=== PATIENT | female | born 1970 | race African-American/Black ===

== ENCOUNTER 2017-01-04 13:04 | Emergency (ER) | payer OTHER ==
[~2017-01-04] VITALS: Ht 170.2 cm; Wt 145.0 kg
[2017-01-04 13:08] VITALS: Ht 170.2 cm; Wt 145.0 kg
[2017-01-04] MEDS ORDERED: FAMOTIDINE 20 MG INJ IV STA (15:13)
[2017-01-04] MEDS ORDERED: ONDANSETRON 4 MG INJ IV STA ×2 (15:13→18:08)
[2017-01-04] MEDS ORDERED: SOD CHLORIDE 0.9% 1,000 ML IV STA (15:13)
[2017-01-04] MEDS ORDERED: morphine 4 MG/ML VIAL IV STA ×2 (15:13→18:08)
[2017-01-04 15:33] LABS: ADD SCAN DIFF NO
[2017-01-04 15:35] LABS: BASOPHILS % 0.4 % (0.0-2.0); EOSINOPHILS # 0.1 10^3/ul (0.0-0.5); EOSINOPHILS % 1.9 % (0.0-7.0); HEMATOCRIT 38.9 % (37.0-47.0); HEMOGLOBIN 12.2 g/dl (12.0-16.0); LYMPHOCYTES # 1.1 10^3/ul (0.8-2.9); LYMPHOCYTES % 21.5 % (15.0-51.0); MEAN CORPUSCULAR HEMOGLOBIN 29.3 pg (29.0-33.0); MEAN CORPUSCULAR HGB CONC 31.4 g/dl (32.0-37.0); MEAN CORPUSCULAR VOLUME 93.3 fl (82.0-101.0); MEAN PLATELET VOLUME 9.6 fl (7.4-10.4); MONOCYTE # 0.3 10^3/ul (0.3-0.9); NEUTROPHIL # 3.6 10^3/ul (1.6-7.5); PLATELET COUNT 254 10^3/UL (140-415); RED BLOOD COUNT 4.17 10^6/ul (4.20-5.40); RED CELL DISTRIBUTION WIDTH 13.5 % (11.5-14.5); WHITE BLOOD COUNT 5.2 10^3/ul (4.8-10.8)
[2017-01-04 15:44] LABS: ALBUMIN 3.9 g/dl (3.3-4.9)
[2017-01-04 15:45] LABS: CHLORIDE 101 mmol/L (97-110); POTASSIUM 4.4 mmol/L (3.5-5.1); SODIUM 143 mmol/L (135-144)
[2017-01-04 15:46] LABS: INR 1.01; PROTIME 13.3 Sec (12.2-14.2)
[2017-01-04 15:47] LABS: ALBUMIN/GLOBULIN RATIO 0.95; ALKALINE PHOSPHATASE 92 IU/L (42-121); ANION GAP 14 (8-16); ASPARTATE AMINO TRANSFERASE 29 IU/L (15-46); BILIRUBIN,INDIRECT 0.4 mg/dl (0-1.1); BILIRUBIN,TOTAL 0.4 mg/dl (0.2-1.3); CARBON DIOXIDE 32 mmol/L (21-31); CREATININE 0.75 mg/dl (0.44-1.00); PARTIAL THROMBOPLASTIN TIME 27.9 Sec (25.0-35.0)
[2017-01-04 15:48] LABS: ALANINE AMINOTRANSFERASE 37 IU/L (13-69); BLOOD UREA NITROGEN 11 mg/dl (7-20); CALCIUM 9.4 mg/dl (8.4-10.2); GLUCOSE 97 mg/dl (70-220)
--- NOTE | 2017-01-04 15:51 | RADRPT ---
PROCEDURE: Chest Radiograph. CLINICAL INDICATION: Chest pain TECHNIQUE: Single frontal chest radiograph. COMPARISON: None available FINDINGS: Study is mildly limited due to underpenetration secondary patient body habitus. The cardiomediastin al silhouette is within normal limits. No infiltrate or effusion is seen. The bones are intact. IMPRESSION: 1. No evidence of acute cardiopulmonary disease. RPTAT: KK .Neptali Kincaid MD, MD Date Time Electronically viewed and signed by .Neptali Kincaid MD, MD on 01/04/2017 15:50 .B/
--- NOTE | 2017-01-04 15:52 | ERA ---
ER Documentation Chief Complaint Date/Time DATE: 01/04/17 TIME: 15:43 Chief Complaint CHEST PAIN WITH VOMITING X 2 DAYS HPI Pt complains of upper abdominal pain off and on since saturday. She sates she had vomiting on Saturday only and had diarrhea initially that is now resolved. She says nothing makes the pain better or worse and has not had a fever with it. She has never had this pain before. She denies any dysuria, hematuria or flank pain. She occasionally has heartburn with a bad taste in her mouth which is also a new symptoms. ROS All systems reviewed and are negative except as per history of present illness. Medications Home Meds Reported Medications Lisinopril* (Lisinopril*) Unknown Strength Tablet, MG PO DAILY for PRN, #30 TAB 01/04/17 Allergies Allergies: Coded Allergies: No Known Allergy (Unverified , 01/04/17) PMhx/Soc Pt has a h/o HTN and an ubilical hernia repair. History of Surgery: Yes Hx Cardiac Disorders: Yes Smoking Status: Never smoker FmHx Family History: diabetes Physical Exam Vitals Vital Signs Date Time Temp Pulse Resp B/P Pulse Ox O2 Delivery O2 Flow Rate FiO2 01/04/17 17:31 Nasal Cannula 01/04/17 17:31 98.6 63 18 147/95 100 Room Air 01/04/17 13:08 98.6 68 18 188/107 99 Physical Exam Const: []very pleasant well developed obese female lying on the bed in no acute distress Head: Atraumatic normocephalic Eyes: Normal Conjunctiva ENT: Normal External Ears, Nose and Mouth. Neck: Full range of motion..~ No meningismus. Resp: Clear to auscultation bilaterally Cardio: Regular rate and rhythm, no murmurs, chest is nontender to palpation Abd: Soft, mild tenderness to palpation of the upper abdomen - more in the epigastium and right upper quadrant without rebound or guarding, non distended. Normal bowel sounds Skin: No petechiae or rashes Back: No midline or flank tenderness Ext: No cyanosis, or edema Neur: Awake and alert, oriented x3, gcs =15 Psych: Normal Mood and Affect Result Diagram: 01/04/17 1525 01/04/17 1525 Results 24 hrs Laboratory Tests Test 01/04/17 15:25 01/04/17 21:00 Activated Partial Thromboplast Time 27.9Sec Alanine Aminotransferase (ALT/SGPT) 37IU/L Albumin 3.9g/dl Albumin/Globulin Ratio 0.95 Alkaline Phosphatase 92IU/L Anion Gap 14 Aspartate Amino Transf (AST/SGOT) 29IU/L Basophils # 0.010^3/ul Basophils % 0.4% Beta HCG, Quantitative < 2.4mIU/ml Blood Urea Nitrogen 11mg/dl Calcium Level 9.4mg/dl Carbon Dioxide Level 32mmol/L Chloride Level 101mmol/L Creatinine 0.75mg/dl Direct Bilirubin 0.00mg/dl Eosinophils # 0.110^3/ul Eosinophils % 1.9% Globulin 4.10g/dl Glucose Level 97mg/dl Hematocrit 38.9% Hemoglobin 12.2g/dl INR International Normalized Ratio 1.01 Indirect Bilirubin 0.4mg/dl Lipase 41U/L Lymphocytes # 1.110^3/ul Lymphocytes % 21.5% Mean Corpuscular Hemoglobin 29.3pg Mean Corpuscular Hemoglobin Concent 31.4g/dl Mean Corpuscular Volume 93.3fl Mean Platelet Volume 9.6fl Monocytes # 0.310^3/ul Monocytes % 6.0% Neutrophils # 3.610^3/ul Neutrophils % 70.0% Nucleated Red Blood Cells # 0.010^3/ul Nucleated Red Blood Cells % 0.0/100WBC Platelet Count 75060^3/UL Potassium Level 4.4mmol/L Prothrombin Time 13.3Sec Prothrombin Time Ratio 1.0 Red Blood Count 4.1710^6/ul Red Cell Distribution Width 13.5% Sodium Level 143mmol/L Total Bilirubin 0.4mg/dl Total Protein 8.0g/dl Troponin I < 0.012ng/ml < 0.010ng/ml White Blood Count 5.210^3/ul Creatine Kinase 308IU/L Creatine Kinase Index Pending Creatinine Kinase MB (Mass) Pending Current Medications Medications (Trade) Dose Ordered Sig/Mindy Route PRN Reason Start Time Stop Time Status Last Admin Dose Admin Sodium Chloride (NS) 1,000 ml @ 1,000 mls/hr Q1H STAT IV 01/04/17 15:13 01/04/17 16:12 DC 01/04/17 16:28 Morphine Sulfate (morphine) 4 mg ONCE STAT IV 01/04/17 15:13 01/04/17 15:16 DC 01/04/17 16:27 Ondansetron HCl (Zofran Inj) 4 mg ONCE STAT IV 01/04/17 15:13 01/04/17 15:16 DC 01/04/17 16:26 Famotidine (Pepcid Iv) 20 mg ONCE STAT IV 01/04/17 15:13 01/04/17 15:16 DC 01/04/17 16:27 Morphine Sulfate (morphine) 4 mg ONCE STAT IV 01/04/17 18:08 01/04/17 18:09 DC 01/04/17 18:46 Ondansetron HCl (Zofran Inj) 4 mg ONCE STAT IV 01/04/17 18:08 01/04/17 18:09 DC 01/04/17 18:46 Procedures/MDM differential includes but is not limited to nonspecific abdominal pain, atypical angina, pancreatitis, gastritis, cholelithiasis, cholecystitis, gastric ulcer, gastroparesis EKG: Rate/Rhythm: Normal Sinus Rhythm at 70 bpm with Q waves noted in V2 poor R-wave progression no evidence for acute ischemia noted QRS, ST, T-waves: No changes consistent w/ acute ischemia Impression: No evidence of ischemia or arrhythmia no old EKG available for comparison Chest x-ray did not reveal any acute cardiopulmonary process per the radiologist CAT scan of the abdomen revealed gallstones with a contracted gallbladder no other acute intra-abdominal process noted per the radiologist Ultrasound of the gallbladder showed gallstones without any evidence of cholecystitis or obstruction. Patient's white count and liver function studies are within normal limits. Her pain at this time is improved. Her EKG does not show any acute ischemia and her troponin is negative. It is felt she may follow-up as an outpatient for her biliary colic. She has been advised to avoid any fatty or fried foods. She is also been advised to return to the emergency department if her symptoms return or if she develops any fever or new or worsening symptoms. Departure Diagnosis: Primary Impression: Biliary colic Additional Impression: Cholelithiases Qualified Code: K80.20 - Calculus of gallbladder without cholecystitis without obstruction Condition: Good Patient Instructions: Biliary Colic With Gallstone (Confirmed), Gallstones, Treating Gallstones Referrals: STEVE LEON MD, ANDREW I MD Additional Instructions: Please call Dr. Ann to schedule an appointment to discuss having her gallbladder removed. Please call Dr. Leon to schedule an appointment so that you have a general practitioner. Return to the emergency department if any time he develop fever, increasing pain, intractable vomiting, or new or worsening symptoms. PER MCNEAL Jan 04, 2017 15:52
[2017-01-04 16:04] LABS: TROPONIN-I < 0.012 ng/ml (0.00-0.12)
[2017-01-04] MEDS ORDERED: LISI2.5T59 PO (16:32)
--- NOTE | 2017-01-04 21:22 | RADRPT ---
PROCEDURE: CT Abdomen without contrast. CLINICAL INDICATION: Pain. TECHNIQUE: CT scan of the abdomen without contrast was performed on a multidetector slice CT scan er. Due to the patient's large body habitus. Only the superior aspect of the abdomen could be image d. No oral or intravenous contrast material was utilized. Coronal reformatted images were obtained from the axial source images. Images were reviewed on a high-resolution PACS workstation. Exam CTDlv ol = 28 mGy and DLP = 627 Gy-cm. One of the following 3 dose reduction techniques were used: Automa alcides exposure control; adjustment of the mA and/or kV according to patient size; or use of iterative reconstruction technique. COMPARISON: None. FINDINGS: Examination of the abdomen is incomplete to patient's large body habitus, imaging from the lung base to the inferior aspect of the kidneys. The anterior abdominal wall is partially excluded. The liver is enlarged 19 cm length.. No intrahepatic lesions are identified. There are calcified g allstones up to 1.3 cm within the contracted gallbladder. Gallbladder wall thickening cannot be excl uded. There is no gross biliary ductal dilation. Pancreas and spleen are unremarkable. There are no adrenal masses. The partially visualized kidneys are normal in appearance without hydronephrosis , mass or calculus. Ureters are of normal caliber. The aorta is unremarkable. There is no obstruction or ileus. The appendix is not included. There are scattered colonic divert iculi without evidence for diverticulitis. There is no free fluid. Limited evaluation lung bases unremarkable. The bones are unremarkable. IMPRESSION: 1. Incomplete examination due to patient's large body habitus. The abdomen below the mid poles of the kidneys is excluded. 2. Multiple calcified gallstones. Partially contracted gallbladder with nonspecific gallbladder wa ll thickening. No gross ductal dilatation. Although ultrasound is would also be limited, there are right upper quadrant also may be helpful. 3. Hepatomegaly. 4. Scattered colonic diverticuli without diverticulitis. RPTAT: HMVK .Kedar Byers MD, Date Time Electronically viewed and signed by .Kedar Byers MD, MD on 01/04/2017 21:21 .K/
[2017-01-04 21:48] LABS: CREATINE KINASE 308 IU/L (23-200)
--- NOTE | 2017-01-04 22:04 | RADRPT ---
PROCEDURE: US Abdomen. CLINICAL INDICATION: Abdominal pain TECHNIQUE: Multiple real-time images were acquired of the patient's right upper quadrant utilizing a high resolution transducer. The images were reviewed on a high-resolution PACS workstation. COMPARISON: None FINDINGS: Exam is limited secondary to body habitus. The liver demonstrates increased echogenicity and size a nd no focal lesions are seen. The liver measures 23.1 cm in size. The gallbladder is contracted with gallstones identified. There is no pericholecystic fluid. The gallbladder wall is not well visualiz ed. No intrahepatic biliary dilatation is seen. The common bile duct measures 3.6 mm in maximal di mension. No free fluid is identified. The right kidney is of normal size, and demonstrate normal echogenicity and morphology. The right k idney measures 11 cm. There are is no dilatation of the right collecting system. There are no mecca nephric fluid collections. There are no areas of increased echogenicity to suggest nephrolithiasis. IMPRESSION: 1. Contracted gallbladder with cholelithiasis. 2. Mild to moderate hepatomegaly with fatty infiltration. RPTAT: HPNM Physician Kim Date Time Electronically viewed and signed by Physician Kim on 01/04/2017 22:04 /
[2017-01-04 22:18] LABS: TROPONIN-I < 0.010 ng/ml (0.00-0.12)
[2017-01-04 22:21] LABS: CK-MB 1.28 ng/ml (0.0-2.4)
[2017-01-04] MEDS ORDERED: HYDR-906 PO (22:24)
[2017-01-04] MEDS ORDERED: ONDA4TAB8 PO (22:24)
[2017-01-04 22:53] VITALS: BP 144/86; PULSE 68; RESP 18; TEMP 98.2
== END 2017-01-04 22:54 | disposition home or self-care (01) ==
LOC: E/R 13:04
DX: K80.70 Calculus of gallbladder and bile duct without cholecystitis without obstruction (principal); R11.10 Vomiting, unspecified; I10 Essential (primary) hypertension
CPT/HCPCS: 36415; 71010; 74150; 76705; 80053; 82550; 82553; 83690; 84484; 84702; 85025; 85610; 85730; 96374; 96375; 96376; J2270; J2405; J7030; Z7502; Z7610; 93005